=== PATIENT | male | born 1965 | race Caucasian/White ===

== ENCOUNTER 2018-03-10 01:14 | Outpatient (CLI) | payer MEDICAID, SELFPAY ==
--- NOTE | 2018-03-10 13:42 | DI.REPORT_ITS ---
SYMPTOMS/DIAGNOSIS: RT BABINSKI REFLEX, R29.2, MYELOPATHY, G95.9 MRI OF THE BRAIN: There are no prior comparison exams. T 2 sagittal, T 1, T 2, FLAIR, diffusion and gradient echo axial sequences were performed. The exam is mildly limited by patient motion. No intracranial hemorrhage, mass or infarct is seen. There are no abnormal high signal lesions in the white matter. The ventricles are normal in size. The vascular flow voids appear intact. The orbits, sinuses and mastoid air cells are unremarkable. The pituitary is normal in size. IMPRESSION: Negative MRI of the brain. MRI OF THE THORACIC SPINE: T 1, T 2, STIR and T 2 3D sagittal and T 2 axial sequences were performed. The cord signal appears normal throughout. There are endplate osteophytes projecting mainly anteriorly. There is disc bulging at T 7 - 8 through T 12 - L 1. Facet degenerative changes are also seen in the lower thoracic levels. There is neural foraminal encroachment at T 10 - 11, at T 11 - 12 and T 12 - L 1. There is mild central canal stenosis at T 11 - 12 and T 12 - L 1. Scattered hemangiomata are noted. 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 The cord signal appears normal.
== END 2018-03-10 01:15 ==
PROVIDERS: PCP Family Medicine; Visit Provider Psychiatry & Neurology Neurology
DX: G95.9 Disease of spinal cord, unspecified (principal); R29.2 Abnormal reflex; M47.815 Spondylosis without myelopathy or radiculopathy, thoracolumbar region
CPT/HCPCS: 70551; 72146

== ENCOUNTER → 2021-02-26 11:02 | Outpatient (BNVA) | payer MEDICARE, MEDICAID, SELFPAY | PROVIDERS: PCP Family Medicine; Referring Provider Family Medicine; Visit Provider Psychiatry & Neurology Neurology | DX: M47.14 Other spondylosis with myelopathy, thoracic region (principal); M54.5 Low back pain; G89.29 Other chronic pain | CPT/HCPCS: 99214 ==